=== PATIENT | female | born 1990 | race Caucasian/White ===

== ENCOUNTER 2017-08-15 07:39 | Outpatient (CLI) | payer OTHER | END 2017-08-15 07:40 | disposition home or self-care (01) | LOC: BICULT 07:39 | PROVIDERS: ATTEND Internal Medicine Gastroenterology | DX: R10.11 Right upper quadrant pain (principal); K82.4 Cholesterolosis of gallbladder | CPT/HCPCS: 76705 ==

== ENCOUNTER 2017-09-10 07:24 | Outpatient (CLI) | payer OTHER ==
[2017-09-10 08:30] LABS: BHCG - Serum Negative (NEGATIVE); Pregs Control Background? CLEAR/WHITE (CLR/WHITE); Pregs Control Bar Appear? YES (CONTROL BAR)
--- NOTE | 2017-09-10 12:04 | NM ---
HEPATOBILIARY SCAN: Date: 09/10/17 HISTORY: Epigastric pain. RADIOPHARMACEUTICAL: 4.6 mCi technetium-99m mebrofenin injected intravenously. FINDINGS: There is good tracer extraction by the liver with prompt excretion into the biliary tract and small b owel loops, and normal filling of the gallbladder. The calculated gallbladder ejection fraction following an oral fatty meal measures 52%. IMPRESSION: Normal exam. POS: AARON
== END 2017-09-10 07:25 | disposition home or self-care (01) ==
LOC: NM 07:24
PROVIDERS: ATTEND Internal Medicine Gastroenterology
DX: R10.13 Epigastric pain (principal)
CPT/HCPCS: 36415; 78227; 82565; 84703; A9537

== ENCOUNTER 2018-03-24 08:28 | Outpatient (CLI) | payer OTHER ==
[2018-03-24] MEDS ORDERED: Iopamidol 370 76% 100 ML VIAL ONE (09:00)
[2018-03-24 09:20] LABS: BHCG - Serum Negative (NEGATIVE); Pregs Control Background? CLEAR/WHITE (CLR/WHITE); Pregs Control Bar Appear? YES (CONTROL BAR)
--- NOTE | 2018-03-24 12:53 | CT ---
CT ABDOMEN AND PELVIS WITH IV CONTRAST: DATE: 03/24/18. HISTORY: Occasional right upper quadrant abdominal pain over the last 18 months. COMPARISON: None available. FINDINGS: The lung bases are clear. The osseous structures have a normal appearance. There is a subcentimeter too small to characterize hypodense lesion in the inferior pole right kidney . The right kidney otherwise has a normal CT appearance. The liver, spleen, pancreas, bilateral adrenal glands, left kidney, abdominal aorta, and opacified dede wel demonstrate a normal CT appearance. There is a retrocecal appendix which is filled with gas without CT evidence of appendicitis. The urinary bladder is decompressed but normal in appearance. The uterus is also normal in appearanc e. There are hypodense lesions associated with each ovary related to dominant follicles and/or small cys ts. No free fluid, fluid collection, or lymphadenopathy is seen in the abdomen or pelvis. IMPRESSION: 1. Subcentimeter too small to characterize hypodense lesion in the right kidney. 2. No acute findings are seen in the abdomen or pelvis. POS: AARON
== END 2018-03-24 08:29 | disposition home or self-care (01) ==
LOC: SCSCT 08:28
PROVIDERS: ATTEND Internal Medicine Gastroenterology
DX: R10.11 Right upper quadrant pain (principal); K21.9 Gastro-esophageal reflux disease without esophagitis; N28.9 Disorder of kidney and ureter, unspecified
CPT/HCPCS: 36415; 74177; 84703

== ENCOUNTER 2020-09-30 07:31 | Outpatient (CLI) | payer OTHER ==
[2020-09-30] MEDS ORDERED: Magnevist 469MG/ML 20 ML VIAL ONE (14:45)
== END 2020-09-30 07:32 | disposition home or self-care (01) ==
LOC: BICMRI 07:31
PROVIDERS: ATTEND Otolaryngology Plastic Surgery within the Head & Neck
DX: H93.A1 Pulsatile tinnitus, right ear (principal)
CPT/HCPCS: 70553; A9579